=== PATIENT | male | born 1990 | race Native Hawaiian/Other Pacific Islander ===

== ENCOUNTER 2023-03-26 19:29 | Emergency (ER) | payer BC ==
[~2023-03-26] VITALS: Ht 187.8 cm; Wt 117.9 kg
[2023-03-26] MEDS ORDERED: ONDANSETRON INJECTION 4 MG/2 ML (SDV) IVP ONE (20:00)
[2023-03-26] MEDS ORDERED: PANTOPRAZOLE INJECTION 40 MG VIAL IV ONE (20:00)
[2023-03-26] MEDS ORDERED: LACTATED RINGERS 1,000 ML 1,000 ML IV SCH (20:00)
[2023-03-26 20:12] LABS: BASOPHILS # (AUTO) 0.1 10^3/uL (0.0-0.1); BASOPHILS % (AUTO) 1 % (0-10); EOSINOPHILS # (AUTO) 0.1 10^3/uL (0.0-0.3); EOSINOPHILS % (AUTO) 2 % (0-10); HEMATOCRIT 46 % (40-54); HEMOGLOBIN 15.9 g/dL (13.3-17.7); LYMPHOCYTES # (AUTO) 1.9 10^3/uL (1.0-4.0); LYMPHOCYTES % (AUTO) 23 % (12-44); MEAN CORPUSCULAR HEMOGLOBIN 31 pg (25-34); MEAN CORPUSCULAR HGB CONC 35 g/dL (32-36); MEAN CORPUSCULAR VOLUME 89 fL (80-99); MONOCYTES # (AUTO) 0.5 10^3/uL (0.0-1.0); MONOCYTES % (AUTO) 6 % (0-12); NEUTROPHILS # (AUTO) 5.7 10^3/uL (1.8-7.8); NEUTROPHILS % (AUTO) 68 % (42-75); PLATELET COUNT 343 10^3/uL (130-400); WHITE BLOOD COUNT 8.4 10^3/uL (4.3-11.0)
[2023-03-26] MEDS ORDERED: IOHEXOL 350 MG/ML 100 ML (OMNIPAQUE 350) VIAL IV ONE (20:15)
[2023-03-26] MEDS ORDERED: NS 100 ML (IVPB) BAG IV ONE (20:15)
[2023-03-26] MEDS ORDERED: HOLD METFORMIN - RECEIVED CONTRAST 20 ML VIAL IV SCH (20:15)
[2023-03-26 20:17] LABS: INR 0.9 (0.8-1.4); PROTHROMBIN TIME PATIENT 12.7 SEC (12.2-14.7)
[2023-03-26 20:25] LABS: ALANINE AMINOTRANSFERASE 41 U/L (0-55); ALBUMIN 4.9 GM/DL (3.2-4.5); ALKALINE PHOSPHATASE 75 U/L (40-136); AMYLASE 37 U/L (25-125); BILIRUBIN,TOTAL 0.7 MG/DL (0.1-1.0); BUN/CREATININE RATIO 11; CALCIUM 9.6 MG/DL (8.5-10.1); CARBON DIOXIDE 22 MMOL/L (21-32); CHLORIDE 106 MMOL/L (98-107); CREATININE SERUM 1.19 MG/DL (0.60-1.30); GFR ESTIMATED 83; GLUCOSE 105 MG/DL (70-105); LIPASE 32 U/L (8-78); MAGNESIUM 2.3 MG/DL (1.6-2.4); POTASSIUM 4.1 MMOL/L (3.6-5.0); SODIUM 140 MMOL/L (135-145); TOTAL PROTEIN 8.4 GM/DL (6.4-8.2)
--- NOTE | 2023-03-26 20:34 | ED Chest Pain ---
General Chief Complaint: Chest Pain Stated Complaint: NAUSEA,CHEST PAIN Source: patient History of Present Illness Date Seen by Provider: Mar 26, 2023 Time Seen by Provider: 19:55 Initial Comments PT ARRIVES VIA POV FROM HOME PT STATES FOR THE LAST 3 WEEKS HE HAS HAD: -NAUSEA, NO VOMITING. "CAN'T EAT" BUT IS TAKING LIQUIDS WELL. HE ATE [employer] AT 1500 TODAY -"EVERY ONCE IN AWHILE I HAVE CHEST PAIN" SYMPTOMS NO DIFFERENT TONIGHT ( WEDNESDAY NIGHT) HAS NOT SOUGHT CARE UNTIL TONIGHT--STATES "EVERYBODY TOLD ME TO COME HERE" HAS NOT TAKEN ANYTHING FOR SYMPTOMS NOTHING WORSENS OR IMPROVES SYMPTOMS NO SHORTNESS OF BREATH NO ABDOMINAL PAIN NO PALPITATIONS NO DIZZINESS OR SYNCOPE NO HISTORY OF SIMILAR NO DAILY MEDICATIONS, BUT STATES HE HAS HTN AND HYPERLIPIDEMIA HE HAS NOT HAD ANY ABDOMINAL SURGERIES HE OCCASIONALLY SMOKES CIGARS, DRINKS ONCE EVERY 2 WEEKS, DENIES DRUG USE PCP: DR. ALFORD AT [facility] IN [place]--ROUTINE APPOINTMENT IN Allergies and Home Medications Allergies Coded Allergies: No Known Drug Allergies (Unverified , 03/26/23) Patient Home Medication List Home Medication List Reviewed: Yes Ondansetron (Ondansetron Odt) 4 Mg Tab.rapdis, 4 MG PO Q4H Prescribed by: LIANNA ZAIDI on 03/26/232122 Pantoprazole Sodium (Protonix) 40 Mg Tablet.dr, 40 MG PO DAILY Prescribed by: LIANNA ZAIDI on 03/26/232122 Review of Systems Review of Systems Constitutional: no symptoms reported EENTM: No Symptoms Reported Respiratory: No Symptoms Reported Cardiovascular: See HPI, Chest Pain Gastrointestinal: See HPI; Denies Abdominal Pain, Denies Constipated; Nausea; Denies Vomiting Genitourinary: No Symptoms Reported Musculoskeletal: no symptoms reported Skin: no symptoms reported Psychiatric/Neurological: No Symptoms Reported Endocrine: No Symptoms Reported Hematologic/Lymphatic: No Symptoms Reported Past [id number] Hx Patient Social History Tobacco Use?: Yes Tobacco type used: Cigars Smoking Status: Current Someday Smoker Use of E-Cig and/or Vaping dev: No Substance use?: No Alcohol Use?: Yes Alcohol Frequency: Several times a month Past Medical History Surgeries: Yes (HEMORRHOIDS 2018;WISDOM TEETH 2013;MOLES REMOVED 2006) Rectal Respiratory: No Cardiac: Yes High Cholesterol, Hypertension Neurological: No Genitourinary: No Gastrointestinal: No Musculoskeletal: No Endocrine: No HEENT: No Cancer: No Psychosocial: No Integumentary: No Blood Disorders: No Physical Exam Vital Signs Capillary Refill : Height, Weight, BMI Height: '" Weight: lbs. oz. 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 Norm as Tested Skin: Normal Color, Warm/Dry Progress/Results/Core Measures Results/Orders Lab Results Laboratory Tests Test 03/26/23 19:50 03/26/23 20:55 Range/Units White Blood Count 8.4 4.3-11.0 10^3/uL Red Blood Count 5.09 4.30-5.52 10^6/uL Hemoglobin 15.9 13.3-17.7 g/dL Hematocrit 46 40-54 % Mean Corpuscular Volume 89 80-99 fL Mean Corpuscular Hemoglobin 31 25-34 pg Mean Corpuscular Hemoglobin Concent 35 32-36 g/dL Red Cell Distribution Width 11.7 10.0-14.5 % Platelet Count 343 130-400 10^3/uL Mean Platelet Volume 10.0 9.0-12.2 fL Immature Granulocyte % (Auto) 0 % Neutrophils (%) (Auto) 68 42-75 % Lymphocytes (%) (Auto) 23 12-44 % Monocytes (%) (Auto) 6 0-12 % Eosinophils (%) (Auto) 2 0-10 % Basophils (%) (Auto) 1 0-10 % Neutrophils # (Auto) 5.7 1.8-7.8 10^3/uL Lymphocytes # (Auto) 1.9 1.0-4.0 10^3/uL Monocytes # (Auto) 0.5 0.0-1.0 10^3/uL Eosinophils # (Auto) 0.1 0.0-0.3 10^3/uL Basophils # (Auto) 0.1 0.0-0.1 10^3/uL Immature Granulocyte # (Auto) 0.0 0.0-0.1 10^3/uL Prothrombin Time 12.7 12.2-14.7 SEC INR Comment 0.9 0.8-1.4 Activated Partial Thromboplast Time 30 24-35 SEC Sodium Level 140 135-145 MMOL/L Potassium Level 4.1 3.6-5.0 MMOL/L Chloride Level 106 98-107 MMOL/L Carbon Dioxide Level 22 21-32 MMOL/L Anion Gap 12 5-14 MMOL/L Blood Urea Nitrogen 13 7-18 MG/DL Creatinine 1.19 0.60-1.30 MG/DL Estimat Glomerular Filtration Rate 83 BUN/Creatinine Ratio 11 Glucose Level 105 70-105 MG/DL Calcium Level 9.6 8.5-10.1 MG/DL Corrected Calcium 8.5-10.1 MG/DL Magnesium Level 2.3 1.6-2.4 MG/DL Total Bilirubin 0.7 0.1-1.0 MG/DL Aspartate Amino Transf (AST/SGOT) 24 5-34 U/L Alanine Aminotransferase (ALT/SGPT) 41 0-55 U/L Alkaline Phosphatase 75 40-136 U/L Troponin I < 0.028 <0.028 NG/ML Total Protein 8.4 H 6.4-8.2 GM/DL Albumin 4.9 H 3.2-4.5 GM/DL Amylase Level 37 25-125 U/L Lipase 32 8-78 U/L Urine Color YELLOW Urine Clarity CLEAR Urine pH 6.5 5-9 Urine Specific Ava 1.010 L 1.016-1.022 Urine Protein NEGATIVE NEGATIVE Urine Glucose (UA) NEGATIVE NEGATIVE Urine Ketones NEGATIVE NEGATIVE Urine Nitrite NEGATIVE NEGATIVE Urine Bilirubin NEGATIVE NEGATIVE Urine Urobilinogen 0.2 < = 1.0 MG/DL Urine Leukocyte Esterase NEGATIVE NEGATIVE Urine RBC (Auto) TRACE H NEGATIVE Urine RBC NONE /HPF Urine WBC NONE /HPF Urine Squamous Epithelial Cells NONE /HPF Urine Crystals NONE /LPF Urine Bacteria NEGATIVE /HPF Urine Casts NONE /LPF Urine Mucus NEGATIVE /LPF Urine Culture Indicated NO My Orders Orders - LIANNA ZAIDI DO Ekg Tracing (03/26/23 19:49) Ed Iv/Invasive Line Start (03/26/23 20:00) Monitor-Rhythm Ecg Trace Only (03/26/23 20:00) Amylase (03/26/23 20:00) Cbc And Automated Diff (03/26/23 20:00) Comprehensive Metabolic Panel (03/26/23 20:00) Lipase (03/26/23 20:00) Magnesium (03/26/23 20:00) Protime With Inr (03/26/23 20:00) Partial Thromboplastin Time (03/26/23 20:00) Troponin I Rebeca (03/26/23 20:00) Ua Culture If Indicated (03/26/23 20:00) Chest 1 View, Ap/Pa Only (03/26/23 20:00) Ct Mayela Chest/Noang Abd-Pelv W (03/26/23 20:00) Ed Iv/Invasive Line Start (03/26/23 20:00) Ondansetron Injection (Ondansetron Inj (03/26/23 20:00) Pantoprazole Injection (Pantoprazole Inj (03/26/23 20:00) Lactated Ringers 1,000 Ml (Lactated Ring (03/26/23 20:00) Iohexol Injection (Omnipaque 350 Mg/Ml 1 (03/26/23 20:15) Received Contrast (Hold Metformin- Contr (03/26/23 20:15) Ns (Ivpb) 100 Ml (Sodium Chloride 0.9% 1 (03/26/23 20:15) Medications Given in ED Current Medications Medications Dose Ordered Sig/Devin Route Start Time Stop Time Status Last Admin Dose Admin Iohexol 100 ml ONCE ONCE IV 03/26/23 20:15 03/26/23 20:16 DC 03/26/23 20:29 85 ML Ondansetron HCl 4 mg ONCE ONCE IVP 03/26/23 20:00 03/26/23 20:08 DC 03/26/23 20:30 4 MG Pantoprazole 40 mg ONCE ONCE IV 03/26/23 20:00 03/26/23 20:08 DC 03/26/23 20:29 40 MG Sodium Chloride 100 ml ONCE ONCE IV 03/26/23 20:15 03/26/23 20:16 DC 03/26/23 20:29 70 ML Progress Progress Note : Progress Note VITALS STABLE, BP AT DISMISSAL 148/96, HR 90, RR 16, O2 SAT 98% ON ROOM AIR GIVEN: -ZOFRAN -PROTONIX -IV FLUIDS LABS: -CBC NORMAL -CMP NORMAL -AMYLASE/LIPASE NORMAL -TROPONIN NEGATIVE EKG NORMAL CXR NORMAL CT CHEST/ABDOMEN/PELVIS UNREMARKABLE UNEVENTFUL ER STAY SYMPTOMS RESOLVED AT DISMISSAL DISCUSSED TEST RESULTS, ANTICIPATED COURSE, MEDICATIONS, NEED FOR FOLLOW UP FOR FURTHER EVALUATION OF SYMPTOMS AND RETURN PRECAUTIONS ALSO DISCUSSED NEED FOR FOLLOW UP WITH PCP FOR BLOOD PRESSURE DISCUSSED POSSIBLE NEED FOR ADDITIONAL OUTPATIENT TESTS IF SYMPTOMS PERSIST SUCH ULTRASOUND, HIDA SCAN AND ENDOSCOPY. Initial ECG Impression Date: Mar 26, 2023 Initial ECG Impression Time: 19:56 Initial ECG Rate: 84 Initial ECG Rhythm: Normal Sinus Initial ECG Intervals: Normal Initial ECG Impression: Normal Initial ECG Comparisson: No Previous ECG Available Comment INTERPRETED BY ME Diagnostic Imaging Comments PER RADIOLOGIST REPORTS AT 2104 CXR-- FINDINGS: The heart size is normal. There is patchy right basilar infiltrate. There is no pleural effusion or pneumothorax. The mediastinum is unremarkable. IMPRESSION: Patchy right basilar infiltrate possibly reflecting early pneumonia. Recommend clinical correlation. CT CHEST ANGIOGRAM / ABDOMEN-PELVIS FINDINGS: There is no suspicious pulmonary nodule, mass or infiltrate. There is no pleural or pericardial fluid. There is no pneumothorax. The thoracic aorta is normal in caliber without evidence of dissection. No definite filling defect is seen within the pulmonary arteries to suggest pulmonary embolism although the study is limited due to respiratory motion. There is no pathologically enlarged adenopathy in the chest. There is marked fatty infiltration of the liver. The gallbladder is unremarkable. There is no biliary ductal dilatation. The distal esophagus and stomach are unremarkable. Spleen is normal. The pancreas and adrenal glands are unremarkable. Kidneys are normal in appearance apart from a left renal cyst. There is no evidence of nephrolithiasis or obstructive uropathy. Aorta is nonaneurysmal. Bowel gas pattern is nonspecific. The appendix is normal. There is no free air. There is no ascites. There is no focal inflammatory change. Bladder is normal. There is no pelvic mass, adenopathy or free fluid. There are mild degenerative changes in the spine. IMPRESSION: 1. No evidence of aortic aneurysm or dissection. 2. No definitive evidence of pulmonary embolism although evaluation is somewhat limited due to respiratory motion. 3. Fatty infiltration of the liver. 4. The gallbladder is normal. There is no evidence of nephrolithiasis or obstructive uropathy. The appendix is normal. Reviewed: Reviewed by Me Departure Impression Primary Impression: Chest pain Additional Impression: Nausea Disposition: 01 HOME, SELF-CARE Condition: Improved Departure-Patient Inst. Decision time for Depature: 21:20 Referrals: MARCOS ALFORD VENE[facility] JOINTER OPERATOR (PCP/Family) Primary Care Physician Patient Instructions: Chest Pain (DC), Nausea and Vomiting, Adult (DC), Acid Reflux and GERD in Adults (DC) Add. Discharge Instructions: CLEAR LIQUIDS--WATER, BROTH, JELLO, GATORADE BRATS DIET--BANANAS, RICE, APPLESAUCE, TOAST, SALTINES FOLLOW UP WITH YOUR DR NEXT WEEK FOR FURTHER CARE--CALL ON WEDNESDAY TO SCHEDULE AN APPOINTMENT RETURN TO ER IF SYMPTOMS WORSEN All discharge instructions reviewed with patient and/or family. Voiced understanding. Scripts Ondansetron (Ondansetron Odt) 4 Mg Tab.rapdis 4 MG PO Q4H for Nausea/Vomiting, #10 TAB Prov: LIANNA ZAIDI DO 03/26/23 Pantoprazole Sodium (Protonix) 40 Mg Tablet. 40 MG PO DAILY, #15 TAB Prov: LIANNA ZAIDI DO 03/26/23 LIANNA ZAIDI DO Mar 26, 2023 20:34
--- NOTE | 2023-03-26 20:51 | Diagnostic Imaging Report ---
INDICATION: CP, nausea TECHNIQUE: CTA chest, abdomen and pelvis. Thin axial sections through the chest, abdomen and pelvis are obtained following intravenous contrast bolus. Multiplanar MIP images were reconstructed and reviewed. All CT scans use one or more of the following dose optimizing techniques: automated exposure control, MA and/or KvP adjustment based on patient size and exam type or iterative reconstruction. FINDINGS: There is no suspicious pulmonary nodule, mass or infiltrate. There is no pleural or pericardial fluid. There is no pneumothorax. The thoracic aorta is normal in caliber without evidence of dissection. No definite filling defect is seen within the pulmonary arteries to suggest pulmonary embolism although the study is limited due to respiratory motion. There is no pathologically enlarged adenopathy in the chest. There is marked fatty infiltration of the liver. The gallbladder is unremarkable. There is no biliary ductal dilatation. The distal esophagus and stomach are unremarkable. Spleen is normal. The pancreas and adrenal glands are unremarkable. Kidneys are normal in appearance apart from a left renal cyst. There is no evidence of nephrolithiasis or obstructive uropathy. Aorta is nonaneurysmal. Bowel gas pattern is nonspecific. The appendix is normal. There is no free air. There is no ascites. There is no focal inflammatory change. Bladder is normal. There is no pelvic mass, adenopathy or free fluid. There are mild degenerative changes in the spine. IMPRESSION: 1. No evidence of aortic aneurysm or dissection. 2. No definitive evidence of pulmonary embolism although evaluation is somewhat limited due to respiratory motion. 3. Fatty infiltration of the liver. 4. The gallbladder is normal. There is no evidence of nephrolithiasis or obstructive uropathy. The appendix is normal. Dictated by: Dictated on workstation # [id number]
--- NOTE | 2023-03-26 20:51 | Diagnostic Imaging Report ---
INDICATION: Chest pain. FINDINGS: The heart size is normal. There is patchy right basilar infiltrate. There is no pleural effusion or pneumothorax. The mediastinum is unremarkable. IMPRESSION: Patchy right basilar infiltrate possibly reflecting early pneumonia. Recommend clinical correlation. Dictated by: Dictated on workstation # [id number]
[2023-03-26 21:11] LABS: BACTERIA,URINE NEGATIVE /HPF; BILIRUBIN,URINE NEGATIVE (NEGATIVE); CLARITY,URINE CLEAR; COLOR,URINE YELLOW; GLUCOSE, URINE (UA) NEGATIVE (NEGATIVE); KETONES,URINE NEGATIVE (NEGATIVE); LEUKOCYTE ESTERASE ,URINE NEGATIVE (NEGATIVE); NITRITE,URINE NEGATIVE (NEGATIVE); PH,URINE 6.5 (5-9); PROTEIN,URINE NEGATIVE (NEGATIVE)
[2023-03-26] MEDS ORDERED: ONDA4TAB11 PO (21:23)
[2023-03-26] MEDS ORDERED: PANT40TA2 PO (21:23)
[2023-03-26 21:45] VITALS: BP 148/96
== END 2023-03-26 21:45 | disposition home or self-care (01) ==
LOC: ER 19:33
DX: R07.9 Chest pain, unspecified (principal); R11.0 Nausea; F17.290 Nicotine dependence, other tobacco product, uncomplicated
CPT/HCPCS: 36415; 71045; 71275; 74177; 80053; 81000; 82150; 83690; 83735; 84484; 85025; 85610; 85730; 93005; 93041